=== PATIENT | female | born 1985 | race Caucasian/White ===

== ENCOUNTER 2019-02-21 15:37 | Outpatient (RCR) | payer MEDICARE, MEDICAID, SELFPAY | END 2019-03-16 23:59 | disposition home or self-care (01) | LOC: SPT 15:37 | PROVIDERS: Family Provider Family Medicine; PCP Family Medicine; Visit Provider Orthopaedic Surgery | DX: S46.912D Strain of unspecified muscle, fascia and tendon at shoulder and upper arm level, left arm, subsequent encounter (principal); X58.XXXD Exposure to other specified factors, subsequent encounter | CPT/HCPCS: 97110; 97161 ==

== ENCOUNTER 2019-03-17 06:00 | Outpatient (RCR) | payer MEDICARE, MEDICAID, SELFPAY | END 2019-04-14 23:59 | disposition home or self-care (01) | LOC: SPT 06:00 | PROVIDERS: Family Provider Family Medicine; PCP Family Medicine; Visit Provider Orthopaedic Surgery | DX: M25.512 Pain in left shoulder (principal); M25.612 Stiffness of left shoulder, not elsewhere classified | CPT/HCPCS: 97110 ==

== ENCOUNTER 2020-06-25 06:00 | Outpatient (RCR) | payer MEDICARE, MEDICAID, SELFPAY | END 2020-07-14 23:59 | disposition home or self-care (01) | LOC: SPT 06:00 | PROVIDERS: PCP Family Medicine; Referring Provider Chiropractor; Visit Provider Chiropractor | DX: S93.402S Sprain of unspecified ligament of left ankle, sequela (principal); X58.XXXS Exposure to other specified factors, sequela | CPT/HCPCS: 97161 ==

== ENCOUNTER 2020-06-25 06:00 | Outpatient (RCR) | payer MEDICARE, MEDICAID, SELFPAY | END 2020-07-14 23:59 | disposition home or self-care (01) | LOC: SPT 06:00 | PROVIDERS: PCP Family Medicine; Referring Provider Family Medicine; Visit Provider Family Medicine | DX: S93.402S Sprain of unspecified ligament of left ankle, sequela (principal); X58.XXXS Exposure to other specified factors, sequela | CPT/HCPCS: 97161 ==

== ENCOUNTER → 2020-08-04 13:24 | Outpatient (BNVA) | payer MEDICARE, MEDICAID, SELFPAY | PROVIDERS: PCP Family Medicine; Visit Provider Psychiatry & Neurology Psychiatry | DX: F32.9 Major depressive disorder, single episode, unspecified (principal); F43.10 Post-traumatic stress disorder, unspecified | CPT/HCPCS: 90792 ==

== ENCOUNTER → 2020-09-08 12:42 | Outpatient (BNVA) | payer MEDICARE, MEDICAID, SELFPAY | PROVIDERS: PCP Family Medicine; Visit Provider Psychiatry & Neurology Psychiatry | DX: F43.10 Post-traumatic stress disorder, unspecified (principal); F41.1 Generalized anxiety disorder; F32.9 Major depressive disorder, single episode, unspecified | CPT/HCPCS: 99214 ==

== ENCOUNTER → 2020-11-06 12:46 | Outpatient (BNVA) | payer MEDICARE, MEDICAID, SELFPAY | PROVIDERS: PCP Family Medicine; Visit Provider Psychiatry & Neurology Psychiatry | DX: F43.10 Post-traumatic stress disorder, unspecified (principal); F41.1 Generalized anxiety disorder; F32.9 Major depressive disorder, single episode, unspecified | CPT/HCPCS: 99214 ==

== ENCOUNTER → 2021-03-26 14:25 | Outpatient (BNVA) | payer MEDICARE, MEDICAID, SELFPAY | PROVIDERS: PCP Family Medicine; Visit Provider Psychiatry & Neurology Psychiatry | DX: F32.9 Major depressive disorder, single episode, unspecified (principal); F43.10 Post-traumatic stress disorder, unspecified; F41.1 Generalized anxiety disorder | CPT/HCPCS: 99214 ==

== ENCOUNTER → 2021-06-11 12:33 | Outpatient (BNVA) | payer MEDICARE, MEDICAID, OTHER, SELFPAY | PROVIDERS: PCP Family Medicine; Visit Provider Psychiatry & Neurology Psychiatry | DX: F32.9 Major depressive disorder, single episode, unspecified (principal); F43.10 Post-traumatic stress disorder, unspecified; F41.1 Generalized anxiety disorder | CPT/HCPCS: 99214 ==

== ENCOUNTER → 2021-09-08 16:00 | Outpatient (BNVA) | payer MEDICARE, MEDICAID, SELFPAY | PROVIDERS: PCP Family Medicine; Visit Provider Psychiatry & Neurology Psychiatry | DX: F32.9 Major depressive disorder, single episode, unspecified (principal); Z79.899 Other long term (current) drug therapy | CPT/HCPCS: 80053; 80061; 83036; 84443; 85025 ==

== ENCOUNTER → 2022-04-20 15:48 | Outpatient (BNVA) | payer MEDICARE, MEDICAID, SELFPAY | PROVIDERS: PCP Family Medicine; Visit Provider Orthopaedic Surgery | DX: M25.552 Pain in left hip (principal); M54.50 Low back pain, unspecified | CPT/HCPCS: 73502; 99203 ==

== ENCOUNTER 2022-06-18 11:10 | Outpatient (CLI) | payer MEDICARE, MEDICAID, SELFPAY ==
--- NOTE | 2022-06-18 11:45 | MR_ITS ---
WS: [id number] MRI LUMBAR SPINE NONCONTRAST TECHNIQUE: Sagittal T1, T2 and STIR imaging. Axial T1 and T2 imaging. CLINICAL INFORMATION: pain COMPARISON: None. FINDINGS: Mild lumbar curve. No acute compression. Shallow central protrusion L4-L5 with endplate degenerative changes. L1-L2: Mild facet arthropathy. Spinal canal and foramen are patent. L2-L3: Mild facet arthropathy. Spinal canal and foramen are patent. L3-L4: Mild annular bulging. Mild facet arthropathy. Mild RIGHT and no significant LEFT foraminal [place]. L4-L5: Shallow central disc protrusion impinges the traversing LEFT greater than RIGHT L5 nerve roots . Mild central canal stenosis. Moderate LEFT L4-L5 foraminal narrowing. Mild RIGHT L4-L5 foraminal na rrowing. Moderate facet arthropathy. L5-S1: No significant disc bulging. Moderate facet arthropathy. Spinal canal and foramen are patent. Visualized pelvic bony structures: Normal. Paravertebral soft tissues: Normal. Partially visualized RIGHT ovarian cyst measuring 3.6 cm MR/MR lumbar spine wo con* [id number] IMPRESSION: 1. Central disc protrusion L4-L5 impinges the traversing LEFT greater than RIG HT L5 nerve roots in the subarticular recess. Mild central canal stenosis. 2. LEFT foraminal protrusion L4-L5 impinges the exiting LEFT L4 nerve root. Re commend correlation LEFT L4 nerve root symptoms. 3. Mild RIGHT L4-L5 foraminal narrowing. 4. Moderate facet arthropathy L4-L5 and L5-S1.
== END 2022-06-18 11:11 | disposition home or self-care (01) ==
LOC: RAD 11:13
PROVIDERS: PCP Family Medicine; Visit Provider Orthopaedic Surgery
DX: M51.26 Other intervertebral disc displacement, lumbar region (principal); M47.817 Spondylosis without myelopathy or radiculopathy, lumbosacral region
CPT/HCPCS: 72148

== ENCOUNTER → 2022-07-08 15:03 | Outpatient (BNVA) | payer MEDICARE, MEDICAID, SELFPAY | PROVIDERS: PCP Family Medicine; Referring Provider Orthopaedic Surgery; Visit Provider Orthopaedic Surgery | DX: M48.062 Spinal stenosis, lumbar region with neurogenic claudication (principal) | CPT/HCPCS: 72110; 99204 ==

== ENCOUNTER → 2022-08-10 14:13 | Outpatient (BNVA) | payer MEDICARE, MEDICAID, SELFPAY | PROVIDERS: PCP Family Medicine; Visit Provider Orthopaedic Surgery | DX: M48.062 Spinal stenosis, lumbar region with neurogenic claudication (principal) | CPT/HCPCS: 99214 ==

== ENCOUNTER → 2022-08-18 10:43 | Outpatient (BNVA) | payer MEDICARE, MEDICAID, SELFPAY | PROVIDERS: PCP Family Medicine; Visit Provider Clinical Nurse Specialist Adult Health | DX: Z01.818 Encounter for other preprocedural examination (principal) | CPT/HCPCS: 85025 ==

== ENCOUNTER → 2022-08-19 14:43 | Outpatient (BNVA) | payer MEDICARE, MEDICAID, SELFPAY | PROVIDERS: PCP Family Medicine; Visit Provider Clinical Nurse Specialist Adult Health | DX: Z01.818 Encounter for other preprocedural examination (principal) | CPT/HCPCS: 80053 ==

== ENCOUNTER 2022-08-27 05:47 | Day surgery (SDC) | payer MEDICARE, MEDICAID, SELFPAY ==
[2022-08-26 08:56] VITALS: BMI 43.0
[2022-08-27] VITALS (10 sets, daily range): BP systolic 136–171; BP diastolic 71–94; PULSE 84–97; RESP 16–20; TEMP 36.1–36.4; O2SAT 94–100
--- NOTE | 2022-08-27 | XR_ITS ---
WS: [id number] Lumbar spine, C-arm fluoroscopy, 08/27/2022 Clinical Data: l4-5 decompression Comparison: None. Findings: Dr. Warren performed a lumbar decompression. XR/XR lumbar spine 1V [id number] Impression: Lumbar decompression.
[2022-08-27] MEDS: sodium chloride 0.9% 1,000 ML 30 ML IV (06:21)
[2022-08-27] MEDS: scopolamine 1.5 Patch 1 PATCH TRANSDERMA (06:25)
--- NOTE | 2022-08-27 06:33 | ANES.PREANE2 ---
Pre-Anesthetic Assessment Height/Weight: Height 1.68 m Weight 121.109 kg Temp Pulse Resp BP Pulse Ox O2 Del Method 97.5 F L 97 18 171/94 96 Room Air 08/27/22 05:58 08/27/22 05:58 08/27/22 05:58 08/27/22 05:58 08/27/22 05:58 08/27/22 06:15 Preop Diagnosis: Lumbar stenosis Operation Date: 08/27/22 07:00 Proposed Procedures p LEFT L4/5 Microdiscectomy:69624,M48.062(Left) - Wilmer Warren DO Familial anesthetic complications: None Was Beta Kim taken within 24 hours: N/A Was Clonidine taken within 24 hours: N/A Last intake: Intake Last Liquid Date 08/26/22 Last Liquid Time 21:00 Last Solid Date 08/26/22 Last Solid Time 21:00 Social No alcohol and No tobacco Exam alert, oriented x 3, clear to auscultation bilaterally and regular rate & rhythm Airway Mallampati: Class I Dentition: full CV/HEM Hypertension Metabolic Morbid Obesity Anesthetic Plan ASA status: 2 Anesthesia: General Risk of > 500 ml blood loss (7ml/kg in children): No Medications/Allergies Home Medications Medication Instructions Recorded Confirmed Last Taken Type omeprazole 40 mg capsule,delayed 40 mg PO DAILY 04/05/19 08/26/22 08/27/22 History release losartan 25 mg tablet 25 mg PO DAILY 03/26/21 08/26/22 08/26/22 History clonazepam 0.5 mg tablet 0.25 mg PO DAILY PRN anxiety 30 06/22/22 08/26/22 08/27/22 Rx days #20 tabs fluoxetine 40 mg capsule 80 mg PO DAILY 90 days #180 caps 06/22/22 08/26/22 08/27/22 Rx lamotrigine 200 mg tablet 200 mg PO DAILY 30 days #30 tabs 06/22/22 08/26/22 08/27/22 Rx (Lamictal) risperidone 0.5 mg tablet 0.5 mg PO DAILY 30 days #30 tabs 06/22/22 08/26/22 08/27/22 Rx venlafaxine 150 mg 150 mg PO DAILY 30 days #30 caps 06/22/22 08/26/22 08/27/22 Rx capsule,extended release 24 hr Allergies Allergy/AdvReac Type Severity Reaction Status Date / Time iodine AdvReac Intermediate ADR-Itching Verified 08/27/22 06:07 tramadol [From Ultram] AdvReac Intermediate ADR-Vomitin Verified 08/27/22 06:07 g Current Medications Generic Name Dose Route Start Last Admin Trade Name Freq PRN Reason Stop Dose Admin Sodium Chloride 1,000 mls @ 30 mls/hr 08/27/22 06:00 08/27/22 06:21 Sodium Chloride 0.9% IV 08/28/22 05:59 30 mls/hr .Q24H CIPRIANO Administration PFSH Anesthesia Medical History Essential hypertension FAN (generalized anxiety disorder) MDD (major depressive disorder) Pre-op evaluation Psychiatric care PTSD (post-traumatic stress disorder) Surgical History (Updated 08/18/22 @ 10:29 by Aleksey Amaya NP) No pertinent past surgical history Family History (Updated 08/18/22 @ 10:30 by Aleksey Amaya NP) Denies family history of Diabetes CAD (coronary artery disease) Cancer Social History (Updated 08/18/22 @ 10:29 by Aleksey Amaya NP) Smoking and tobacco status: former smoker Alcohol intake: never Substance/Drug Use: never Household members: children Female Reproductive History Date of last menstrual period: 07/26/22 Data Anesthesia Cardiac Studies: No Data to Display
--- NOTE | 2022-08-27 06:39 | W.PM.OPSUD ---
Surgery/Procedure H&P Update DATE OF PROCEDURE: August 27, 2022 DATE H&P PERFORMED: 08/10/22 H&P UPDATE INFORMATION: I have reviewed H&P completed within last 30 days, I have examined patient prior to procedure and No changes to prior documentation PREOP DIAGNOSIS: Lumbar stenosis PLANNED PROCEDURE: Operation Date: 08/27/22 07:00 Proposed Procedures p LEFT L4/5 Microdiscectomy:22103,M48.062(Left) - Wilmer Warren DO
[2022-08-27 06:47] LABS: OR HCG Qualitative Urine Negative (Negative)
[2022-08-27] MEDS: ceFAZolin 2,000 MG in sodium chloride 0.9% (plus) 50 ML 100 MG IV (06:54)
[2022-08-27] MEDS: lidocaine-epi 1% 20 mL INJ INJECTION (07:30)
--- NOTE | 2022-08-27 08:28 | PC.NURSE ---
Pt awake, resting comfortably, pt denies any pain or nausea at this time. O2 at 6L/min via simple mask. Dressing to lower back C/D/I, able to move all extremities.
--- NOTE | 2022-08-27 09:20 | ANE.PACU2 ---
Inpatient post-anesthesia follow up: Airway intact: Yes Vital signs: Temperature 97.5 F Pulse Rate 84 Respiratory Rate 16 Blood Pressure 147/87 Pulse Oximetry 95 Oxygen Delivery Me thod Room Air Oxygen Flow Rate 6 Fraction of Inspir ed Oxygen Hydration adequate: Yes Nausea and vomiting: No Pain level: 1 Mental status: Baseline
[2022-08-27] MEDS: HYDROcodone-acetaminophen 5-325 mg Tablet 1 TAB PO (09:23)
--- NOTE | 2022-08-27 10:25 | P.OP_ITS ---
Operative Report Date of procedure: August 27, 2022 Pre-op diagnosis: Preop Diagnosis Lumbar stenosis with neurogenic claudication Post-op diagnosis: same Procedure done: Left-sided microdiscectomy with laminectomy and partial facetectomy at L4-5 Surgeon: Wilmer Warren [employer]: none Estimated blood loss (mL): 5 Procedure: Left-sided microdiscectomy with laminectomy and partial facetectomy at L4-5 Patient is brought to the operative suite. After undergoing anesthesia they are placed in the prone position. All areas of impingement are well padded. Patient is then prepped and draped in the normal sterile fashion. A skin incision is made over the L4-5 level. This is confirmed under c-arm guidance. A series of dilators are passed and the tubular retractor is docked on the L4 lamina. A bovie is used to clear the soft tissue off the lamina and the L 4/5 facet joint. A high speed rossi is then used to perform the laminectomy and take down the medial aspect of the L 4/5 facet joint. A kerrison rongeure was then used to take down the remaining lamina and smooth the edge of the laminectomy up to the point where the ligamentum flavum attaches. Attention was then brought to the medial aspect of the facet joint. The remaining medial aspect of the superior and inferior aspect of the facet joint were taken down with the kerrison from the pedicle of L4 to L 5. The facet joint had significant hypertrophy. Attention was then brought to the Ligamentum Flavum. The ligament was taken down from the lamina of L4 to L5 and out medially to the remaining facet joint. The ligament was thick. The dura was then exposed. The dura was in good repair. The L4 nerve was then traced with a curette out the L4/5 foramen and found to be adequately decompressed. The L5 nerve was traced with a curette around the L5 pedicle. The lateral recess was opened with a kerrison helping to further decompress the L5 nerve. Wound is then irrigated copiously with saline and surgiflo is used to stop any bleeding. The tubular retractor is removed and the wound is closed with vicryl and monocryl suture. Glue is then used to protect the wound. A sterile dressing is then placed. Patient was then placed in the supine position and transferred to the PACU in stable condition.
== END 2022-08-27 09:40 | disposition home or self-care (01) ==
PROVIDERS: PCP Family Medicine; Visit Provider Orthopaedic Surgery
PROC: (CPT 63047; principal; 2022-08-27 07:00)
DX: M48.062 Spinal stenosis, lumbar region with neurogenic claudication (principal); I10 Essential (primary) hypertension; E66.01 Morbid (severe) obesity due to excess calories; Z68.41 Body mass index [BMI] 40.0-44.9, adult; Z87.891 Personal history of nicotine dependence; F41.9 Anxiety disorder, unspecified; F32.A Depression, unspecified; F43.10 Post-traumatic stress disorder, unspecified
CPT/HCPCS: 63047; 72020; 76000; 81025; 84703; J0690; J1100; J1200; J1885; J2405; J2704; J2710; J3010; J3490; J7030

== ENCOUNTER → 2022-09-30 13:04 | Outpatient (BNVA) | payer MEDICARE, MEDICAID, SELFPAY | PROVIDERS: PCP Family Medicine; Visit Provider Orthopaedic Surgery | DX: T81.40XA Infection following a procedure, unspecified, initial encounter; Y99.9 Unspecified external cause status; Z47.89 Encounter for other orthopedic aftercare; M51.36 Other intervertebral disc degeneration, lumbar region; M48.061 Spinal stenosis, lumbar region without neurogenic claudication | CPT/HCPCS: 72100; 99024 ==

== ENCOUNTER → 2023-07-07 09:03 | Outpatient (BNVA) | payer MEDICARE, MEDICAID, SELFPAY | PROVIDERS: PCP Family Medicine; Visit Provider Orthopaedic Surgery | DX: M48.062 Spinal stenosis, lumbar region with neurogenic claudication (principal) | CPT/HCPCS: 72100; 99214 ==

== ENCOUNTER 2023-08-05 10:48 | Outpatient (CLI) | payer MEDICARE, MEDICAID, SELFPAY ==
--- NOTE | 2023-08-05 11:00 | MR_ITS ---
WS: [id number] MRI LUMBAR SPINE NONCONTRAST TECHNIQUE: Sagittal T1, T2 and STIR imaging. Axial T1 and T2 imaging. CLINICAL INFORMATION: back pain COMPARISON: MRI 06/18/2022 FINDINGS: Interval postoperative changes L4-5 laminectomy with microdiscectomy is new from previous. Mild lumbar curve. No acute compression. No high-grade central canal stenosis. L1-L2: Mild facet arthropathy. Spinal canal and foramen are patent. L2-L3: Mild facet arthropathy. Spinal canal and foramen are patent. L3-L4: Slight retrolisthesis. Mild annular bulging. Moderate facet arthropathy. Mild RIGHT and no sig nificant LEFT foraminal narrowing. Mild facet arthropathy. L4-L5: Postoperative changes are new from previous. Disc space narrowing at this level has slightly p rogressed.Central canal stenosis has improved. Tiny LEFT paracentral disc osteophyte protrusion with slight indentation on the traversing LEFT L5 nerve root. Some of this may be postoperative. Moderate LEFT and mild RIGHT bony foraminal narrowing similar to previous. Moderate facet arthropathy. L5-S1: Mild annular bulging. Advanced RIGHT facet arthropathy. Spinal canal and foramen are patent. Visualized pelvic bony structures: Normal. Paravertebral soft tissues: Normal. MR/MR lumbar spine wo con* [id number] IMPRESSION: 1. Postoperative changes L4-5 laminectomy with microdiscectomy new compared to previous. 2. Central canal stenosis at L4-5 has improved. Tiny LEFT paracentral protrusi on with narrowing of the LEFT subarticular recess. Some of this may be postoper ative. Moderate LEFT L4-5 foraminal narrowing appears stable. 3. Mild RIGHT L3-4 foraminal narrowing with a small RIGHT foraminal protrusion unchanged compared to previous. 4. Moderate facet arthropathy L3-L4 L4-L5. Advanced RIGHT facet arthropathy L5 -S1.
== END 2023-08-05 10:49 | disposition home or self-care (01) ==
PROVIDERS: PCP Family Medicine; Visit Provider Orthopaedic Surgery
DX: M48.062 Spinal stenosis, lumbar region with neurogenic claudication (principal); Z98.890 Other specified postprocedural states; M47.896 Other spondylosis, lumbar region; M25.78 Osteophyte, vertebrae; M47.898 Other spondylosis, sacral and sacrococcygeal region
CPT/HCPCS: 72148

== ENCOUNTER → 2023-08-09 12:55 | Outpatient (BNVA) | payer MEDICARE, MEDICAID, SELFPAY | PROVIDERS: PCP Family Medicine; Visit Provider Orthopaedic Surgery | DX: M48.062 Spinal stenosis, lumbar region with neurogenic claudication (principal) | CPT/HCPCS: 99214 ==

== ENCOUNTER → 2023-12-05 11:03 | Outpatient (BNVA) | payer MEDICARE, MEDICAID, SELFPAY | PROVIDERS: PCP Family Medicine; Visit Provider Nurse Practitioner | DX: M25.532 Pain in left wrist (principal); M65.4 Radial styloid tenosynovitis [de Quervain] | CPT/HCPCS: 20600; 73110; 97760; 99204; J3301; L3809 ==

== ENCOUNTER 2023-12-05 12:46 | Outpatient (CLI) | payer MEDICARE, MEDICAID, OTHER, SELFPAY | END 2023-12-05 12:47 | disposition home or self-care (01) | LOC: SPT 12:48 | PROVIDERS: PCP Family Medicine; Visit Provider Nurse Practitioner | DX: Z46.89 Encounter for fitting and adjustment of other specified devices (principal); M25.532 Pain in left wrist | CPT/HCPCS: 20600; 97760; J3301; L3809 ==

== ENCOUNTER → 2024-01-03 08:58 | Outpatient (BNVA) | payer MEDICARE, MEDICAID, SELFPAY | PROVIDERS: PCP Family Medicine; Visit Provider Nurse Practitioner | DX: Z79.899 Other long term (current) drug therapy (principal) | CPT/HCPCS: 80061; 83036 ==

== ENCOUNTER 2024-01-16 12:14 | Outpatient (CLI) | payer MEDICARE, MEDICAID, SELFPAY ==
[2024-01-16 12:54] LABS: Basophils # 0.1 10^3/uL (0.0-0.1); Basophils % 0.3 %; Eosinophils # 0.2 10^3/uL (0.0-0.8); Hematocrit 42.9 % (36-47); Lymphocytes # 4.2 10^3/uL (0.8-4.8); Lymphocytes % 27.2 %; Mean Corpuscular HGB Conc 31.2 g/dL (30-55); Mean Corpuscular Hemoglobin 25.6 pg (27-33); Mean Corpuscular Volume 81.9 fl (85-98); Mean Platelet Volume 12.6 fL (7.4-10.4); Monocytes # 0.8 10^3/uL (0.2-0.9); Monocytes % 4.9 %; Neutrophils # 10.22 10^3/uL (1.8-7.7); Nucleated Red Blood Cells % 0 %; Platelet Count 290 10^3/cmm (157-399); Red Blood Count 5.24 10^6/uL (3.85-5.65); Red Cell Distribution Width 14.1 % (12.1-15.1); White Blood Count 15.51 10^3/uL (3.29-11.43)
[2024-01-16 12:56] LABS: Bilirubin Urine Negative (Negative); Blood Urine Negative (Negative); Glucose Urine UA Negative (Normal); Ketones Urine Negative (Negative); Leukocyte Esterase Urine Negative (Negative); Nitrate Urine Negative (Negative); Protein Urine Negative (Negative); Specific Gravity, Urine 1.009 (1.005-1.030); Urine Appearance Clear (CLEAR); Urine Color Yellow (Yellow); Urobilinogen Urine 0.2 mg/dL (Negative)
[2024-01-16 13:01] LABS: Add Urine Microscopic? YES; Bacteria Urine None Seen /hpf; Hyaline Casts Urine 0-4 /lpf; RBC Urine 0-2 /hpf (0-2); Squamous Epithelial Cell Urine 0-5 /hpf (0-5); WBC Urine 0-5 /hpf (0-5)
[2024-01-16 13:13] LABS: Alanine Aminotransferase 14 U/L (0-33); Albumin Level 4.3 g/dL (3.5-5.2); Alkaline Phosphatase 101 U/L (35-105); Anion Gap 17.5 (5-19); Aspartate Amino Transferase 12 U/L (0-32); Blood Urea Nitrogen 16 mg/dL (6-20); Calcium 9.1 mg/dL (8.5-10.5); Carbon Dioxide 24 mmol/L (22-29); Chloride 99 mmol/L (98-107); Globulin 3.1 g/dL (1.3-4.6); Glomerular Filtration Rate 93.6 mL/min (90-130); Glucose 108 mg/dL (65-115); Osmolality Calculated 286 mOsm/kg (285-295); Potassium 3.5 mmol/L (3.5-5.1); Sodium 137 mmol/L (136-145); Total Bilirubin 0.3 mg/dL (0.15-1.2); Total Protein 7.4 g/dL (6.6-8.7)
== END 2024-01-16 12:15 | disposition home or self-care (01) ==
LOC: LAB 12:15
PROVIDERS: PCP Family Medicine; Visit Provider Nurse Practitioner
DX: M65.4 Radial styloid tenosynovitis [de Quervain] (principal)
CPT/HCPCS: 80053; 81001; 85025

== ENCOUNTER 2024-01-23 11:57 | Outpatient (CLI) | payer MEDICARE, MEDICAID, SELFPAY ==
[2024-01-23 12:48] LABS: Basophils % 0.2 %; Eosinophils # 0.1 10^3/uL (0.0-0.8); Eosinophils % 1.1 %; Hematocrit 40.3 % (36-47); Lymphocytes # 3.3 10^3/uL (0.8-4.8); Lymphocytes % 26.7 %; Mean Corpuscular Hemoglobin 25.4 pg (27-33); Mean Corpuscular Volume 81.9 fl (85-98); Monocytes # 0.6 10^3/uL (0.2-0.9); Neutrophils # 8.15 10^3/uL (1.8-7.7); Neutrophils % 66.3 %; Nucleated Red Blood Cells % 0 %; Platelet Count 274 10^3/cmm (157-399); Red Blood Count 4.92 10^6/uL (3.85-5.65); Red Cell Distribution Width 14.2 % (12.1-15.1); White Blood Count 12.27 10^3/uL (3.29-11.43)
[2024-01-23 12:49] LABS: Bilirubin Urine Negative (Negative); Blood Urine 3+ (Negative); Glucose Urine UA Negative (Normal); Ketones Urine Negative (Negative); Leukocyte Esterase Urine Trace (Negative); Nitrate Urine Negative (Negative); Protein Urine Negative (Negative); Specific Gravity, Urine 1.008 (1.005-1.030); Urine Appearance Cloudy (CLEAR); Urine Color Yellow (Yellow); Urobilinogen Urine 0.2 mg/dL (Negative)
[2024-01-23 13:11] LABS: Alanine Aminotransferase 14 U/L (0-33); Alkaline Phosphatase 92 U/L (35-105); Anion Gap 14.7 (5-19); Aspartate Amino Transferase 12 U/L (0-32); Blood Urea Nitrogen 14 mg/dL (6-20); Carbon Dioxide 26 mmol/L (22-29); Chloride 99 mmol/L (98-107); Glomerular Filtration Rate 93.6 mL/min (90-130); Glucose 94 mg/dL (65-115); Osmolality Calculated 282 mOsm/kg (285-295); Potassium 3.7 mmol/L (3.5-5.1); Sodium 136 mmol/L (136-145); Total Bilirubin 0.2 mg/dL (0.15-1.2)
[2024-01-23 13:23] LABS: Add Urine Microscopic? YES; Bacteria Urine TRACE /hpf; RBC Urine 0-4 /hpf (0-2); Squamous Epithelial Cell Urine 0-4 /hpf (0-5); UA Manual Slide Review YES; UA Slide Review UA Slide Review Perf; WBC Urine RARE /hpf (0-5)
== END 2024-01-23 11:58 | disposition home or self-care (01) ==
LOC: LAB 11:58
PROVIDERS: PCP Family Medicine; Visit Provider Nurse Practitioner
DX: M65.4 Radial styloid tenosynovitis [de Quervain] (principal)
CPT/HCPCS: 36415; 80053; 81001; 85025

== ENCOUNTER 2024-01-31 05:44 | Day surgery (SDC) | payer MEDICARE, MEDICAID, SELFPAY ==
[2024-01-31] VITALS (11 sets, daily range): BP systolic 120–149; BP diastolic 67–100; PULSE 78–92; RESP 15–20; TEMP 36.1–36.5; O2SAT 93–98; BMI 40.6
[2024-01-31] MEDS: CELEcoxib 200 mg Capsule 400 MG PO (06:28)
[2024-01-31] MEDS: gabapentin 300 mg Capsule PO (06:29)
[2024-01-31] MEDS: acetaminophen 1,000 MG/100 ML PIGGYBACK 400 MG IV (06:29)
[2024-01-31] MEDS: sodium chloride 0.9% 1,000 ML 30 ML IV (06:31)
--- NOTE | 2024-01-31 06:40 | ANES.PREANE2 ---
Pre-Anesthetic Assessment Height/Weight: Height 1.73 m Weight 121.109 kg Temp Pulse Resp BP Pulse Ox O2 Del Method 97.6 F 78 18 149/100 98 Room Air 01/31/24 06:13 01/31/24 06:13 01/31/24 06:13 01/31/24 06:13 01/31/24 06:13 01/31/24 06:13 Operation Date: 01/31/24 07:00 Proposed Procedures p Dequervain Release(Left) - Radha Desouza MD Familial anesthetic complications: None Was Beta Kim taken within 24 hours: N/A Was Clonidine taken within 24 hours: N/A Last intake: Intake Last Liquid Date 01/30/24 Last Liquid Time 21:00 Last Solid Date 01/30/24 Last Solid Time 17:00 Social No alcohol and No tobacco Exam alert, oriented x 3, clear to auscultation bilaterally and regular rate & rhythm Airway Mallampati: Class III Dentition: full CV/HEM Hypertension GI Gastroesophageal Reflux Disease Metabolic Morbid Obesity Anesthetic Plan ASA status: 2 Anesthesia: General Risk of > 500 ml blood loss (7ml/kg in children): No Medications/Allergies Home Medications Medication Instructions Recorded Confirmed Last Taken Type omeprazole 40 mg capsule,delayed 40 mg PO DAILY 04/05/19 01/30/24 01/30/24 History release clonazepam 0.5 mg tablet 0.25 mg (1/2 x 0.5 mg) PO DAILY 10/05/23 01/30/24 01/30/24 Rx PRN anxiety 30 days #20 tabs fluoxetine 40 mg capsule 80 mg (2 x 40 mg) PO DAILY 90 days 10/05/23 01/30/24 01/30/24 Rx #180 caps lamotrigine 200 mg tablet 200 mg PO DAILY 30 days #30 tabs 10/05/23 01/30/24 01/30/24 Rx (Lamictal) risperidone 0.5 mg tablet 0.5 mg PO DAILY 30 days #30 tabs 10/05/23 01/30/24 01/30/24 Rx venlafaxine 150 mg 150 mg PO DAILY 30 days #30 caps 10/05/23 01/30/24 01/30/24 Rx capsule,extended release 24 hr venlafaxine 75 mg capsule,extended 75 mg PO DAILY #30 caps 10/05/23 01/30/2401/29/24 Rx release 24 hr (Effexor XR) Thumb spica splint #1 ea 12/05/23 01/16/24 Unknown Rx hydrochlorothiazide 25 mg tablet 25 mg PO DAILY 01/06/24 01/30/24 01/30/24 History losartan 50 mg tablet 50 mg PO DAILY 01/06/24 01/30/24 01/30/24 History hydrocodone 5 mg-acetaminophen 325 1 tab PO Q8H PRN pain 5 days #15 01/16/24 01/30/24 01/28/24 Rx mg tablet tabs Allergies Allergy/AdvReac Type Severity Reaction Status Date / Time iodine AdvReac Intermediate ADR-Itching Verified 01/16/24 11:33 tramadol [From Ultram] AdvReac Intermediate ADR-Vomitin Verified 01/16/24 11:33 g Current Medications Generic Name Dose Route Start Last Admin Trade Name Freq PRN Reason Stop Dose Admin Sodium Chloride 1,000 mls @ 30 mls/hr 01/31/24 06:15 01/31/24 06:31 Sodium Chloride 0.9% IV 02/01/24 06:14 30 mls/hr .Q24H CIPRIANO Administration PFSH Anesthesia Medical History On combination antipsychotic drug therapy Essential hypertension Pre-op evaluation Psychiatric care PTSD (post-traumatic stress disorder) FAN (generalized anxiety disorder) MDD (major depressive disorder) Surgical History No pertinent past surgical history Family History Denies family history of Diabetes CAD (coronary artery disease) Cancer Social History Smoking and tobacco/nicotine status: former use of tobacco/nicotine Alcohol intake: never Substance/Drug Use: never Household members: children Data Anesthesia Cardiac Studies: No Data to Display
--- NOTE | 2024-01-31 07:00 | P.HPUD_ITS ---
Surgery/Procedure H&P Update DATE OF PROCEDURE: January 31, 2024 DATE H&P PERFORMED: 01/16/24 H&P UPDATE INFORMATION: I have reviewed H&P completed within last 30 days, I have examined patient prior to procedure, No changes to prior documentation and H&P is in [facility] EMR on date indicated PLANNED PROCEDURE: Operation Date: 01/31/24 07:00 Proposed Procedures p Dequervain Release(Left) - Radha Desouza MD Related Problem List Diagnoses (1) De Quervain's tenosynovitis, left:
[2024-01-31] MEDS: ceFAZolin 3,000 MG in sodium chloride 0.9% (100 ml) 100 ML 200 MG IV (07:03)
[2024-01-31] MEDS: BUPivacaine 0.5% INJ 30 mL XX (07:24)
[2024-01-31 07:33] LABS: OR HCG Qualitative Urine Negative (Negative)
--- NOTE | 2024-01-31 08:22 | PM.OP ---
Operative Report Date of procedure: January 31, 2024 Pre-op diagnosis: Left de Quervain's tenosynovitis Post-op diagnosis: Left de Quervain's tenosynovitis Post-op findings: Significant compression along with the de Quervain's canal Procedure done: Left de Quervain's release Implants: None Specimens removed/disposition: None Pathology: None Surgeon: Radha Desouza MD Director Emergency Services: None Anesthesia: General (Per LMA, ASA 2) Estimated blood loss (mL): 2 Tourniquet time (min): 9 (At 250 mmHg) IV fluids (mL): 500 Urine output (mL): 0 Complications: None Findings: Significant compression on the de Quervain's canal and tendons within the compartment Condition: stable Disposition: PACU (Then return to same-day surgery for discharge to home) Brief History: This 38-year-old woman presents with complaints of de Quervain's tenosynovitis on the left. She has had injection therapy as well as anti-inflammatories. She continued with significant pain. She has been wearing a brace, and without it, she has a popping in her wrist. She rates her pain quite highly and wishes to proceed with de Quervain's release. Risks and complications were discussed with her. Consents were signed and questions were answered. Procedure: The patient was brought to the operating theater. Anesthesia provided general anesthesia per LMA, ASA 2. The patient's left upper extremity was prepped and draped in usual fashion utilizing DuraPrep. It was draped free. Tourniquet was elevated to 250 mmHg for a total of 9 minutes. Preoperatively, surgical pause was performed with confirmation of patient identity, procedure, and preoperative antibiotics, Ancef 2 g. The radial styloid was palpated and an incision was made horizontally approximately 1 cm proximal to the tip of the radial styloid. Dissection continued through the skin and dermis but following that soft tissue blunt dissection was accomplished to prevent injury to the superficial radial nerve branches in the area. We were able to retract these branches, and the first dorsal compartment was visualized. The fibrous tissue over the first dorsal compartment was noted to be thickened. This was released longitudinally using a combination of scalpel and scissors. We then confirmed that each of the tendons at been released. There were an abductor pollicis longus tendon and an extensor pollicis brevis tendon. These were released at least a centimeter distal to the radial styloid and proximally as well. There was no further compression across the tendons. The tendons were pulled up out of the tunnel for evaluation. Following this, the wound was irrigated. Attention was then directed to closure. Closure was accomplished with 4-0 Monocryl in a subcuticular fashion. We injected the wound with half percent Marcaine plain for local anesthetic. This was followed by Dermabond and a Tegaderm. We then placed a compression dressing. Fluffed fluffs were then placed followed by soft roll, and an Ra wrap. Patient was returned to Recovery Room in a satisfactory condition and will be discharged home to follow-up with me in the office. There were no specimens and no complications. Related Problem List Diagnoses (1) De Quervain's tenosynovitis, left:
--- NOTE | 2024-01-31 08:55 | ANE.PACU2 ---
Inpatient post-anesthesia follow up: Airway intact: Yes Vital signs: Temperature 97 F Pulse Rate 79 Respiratory Rate 18 Blood Pressure 143/83 Pulse Oximetry 97 Oxygen Delivery Me thod Room Air Oxygen Flow Rate Fraction of Inspir ed Oxygen Hydration adequate: Yes Nausea and vomiting: No Pain level: 1 Mental status: Baseline
== END 2024-01-31 08:56 | disposition home or self-care (01) ==
PROVIDERS: Anesthesiology; PCP Family Medicine; Visit Provider Specialist
PROC: (CPT 25000; principal; 2024-01-31 07:00)
DX: M65.4 Radial styloid tenosynovitis [de Quervain] (principal); I10 Essential (primary) hypertension; K21.9 Gastro-esophageal reflux disease without esophagitis; E66.01 Morbid (severe) obesity due to excess calories; Z68.41 Body mass index [BMI] 40.0-44.9, adult; Z87.891 Personal history of nicotine dependence
CPT/HCPCS: 25000; 81025; J0131; J0690; J1100; J2250; J2704; J3010; J3490; J7030

== ENCOUNTER → 2024-02-13 13:57 | Outpatient (BNVA) | payer MEDICARE, MEDICAID, OTHER, SELFPAY | PROVIDERS: PCP Family Medicine; Visit Provider Specialist | DX: M65.4 Radial styloid tenosynovitis [de Quervain] (principal) | CPT/HCPCS: 99024 ==

== ENCOUNTER → 2024-07-31 15:41 | Outpatient (BNVA) | payer MEDICARE, SELFPAY | DX: I10 Essential (primary) hypertension (principal); K21.9 Gastro-esophageal reflux disease without esophagitis; Z76.89 Persons encountering health services in other specified circumstances; Z53.20 Procedure and treatment not carried out because of patient's decision for unspecified reasons | CPT/HCPCS: 80053; 85025; 87338 ==

== ENCOUNTER → 2024-08-29 11:48 | Outpatient (BNVA) | payer MEDICARE, OTHER, SELFPAY | DX: K21.9 Gastro-esophageal reflux disease without esophagitis (principal); D64.9 Anemia, unspecified | CPT/HCPCS: 82728; 83550; 85025 ==

== ENCOUNTER → 2024-12-14 11:51 | Outpatient (BNVA) | payer MEDICARE, MEDICAID, SELFPAY | DX: I10 Essential (primary) hypertension (principal); D64.9 Anemia, unspecified | CPT/HCPCS: 80053; 80061; 83540 ==